=== PATIENT | female | born 1965 | race Caucasian/White ===

== ENCOUNTER 2022-06-06 02:09 | Inpatient (IN) | payer MEDICAID, OTHER ==
[2022-06-06] VITALS (19 sets, daily range): BP systolic 98–225; BP diastolic 71–126
[~2022-06-06] VITALS: Ht 157.5 cm; Wt 142.0 kg
[2022-06-06] MEDS ORDERED: ALBUTEROL FS 2.5 MG/3 ML VIAL.NEB NEB ONE (02:30)
[2022-06-06] MEDS ORDERED: IPRATROPIUM NEB FS 0.5 MG/2.5 ML AMPUL.NEB NEB ONE (02:30)
--- NOTE | 2022-06-06 02:37 | NUR ---
URINE COLLECTED AND SENT TO LAB.
--- NOTE | 2022-06-06 02:40 | NUR ---
GILLES COLLECTED AND SENT TO LAB.
--- NOTE | 2022-06-06 02:55 | NUR ---
18GA LEFT HAND, 20GA RAC STARTED. BLOOD CXs and BLOOD WORK COMPLETED AND SENT TO LAB.
[2022-06-06 03:04] LABS: BILIRUBIN,URINE 1+ (NEGATIVE); COLOR,URINE YELLOW (YELLOW); LEUKOCYTE ESTERASE ,URINE 1+ (NEGATIVE); NITRITE, URINE NEGATIVE (NEGATIVE); PROTEIN,URINE TRACE mg/dl (NEGATIVE); UGLUCOSE NEGATIVE (NEGATIVE); UROBILINOGEN,URINE 0.2 EU/dL (0.2)
--- NOTE | 2022-06-06 03:04 | NUR ---
RT AT BEDSIDE
[2022-06-06 03:05] LABS: BACTERIA,URINE Few /HPF (None Seen); CALCIUM OXALATE CRYSTALS,UR Rare /HPF (None Seen); SQUAMOUS EPITHELIAL CELL,UR Moderate /HPF (None Seen)
[2022-06-06] MEDS ORDERED: ALBUTEROL FS 2.5 MG/3 ML VIAL.NEB ONE (03:05)
[2022-06-06] MEDS ORDERED: IPRATROPIUM NEB FS 0.5 MG/2.5 ML AMPUL.NEB ONE (03:05)
--- NOTE | 2022-06-06 03:34 | NUR ---
PT WAS PLACED ON O2 AT 6 LPM VIA SYMPLE MASK. PT REMAINED ON CLOSE MONITORING
[2022-06-06 03:49] LABS: CALCIUM, SERUM 9.6 mg/dL (8.5-10.1); CARBON DIOXIDE 33 mmol/L (21-32); CHLORIDE 101 mmol/L (98-107); CREATININE 0.8 mg/dL (0.6-1.3); GLUCOSE 101 mg/dL (74-106); POTASSIUM 3.4 mmol/L (3.5-5.1); SODIUM SERUM 139 mmol/L (136-145); UREA NITROGEN, BLOOD 16 mg/dL (7-18)
[2022-06-06 04:01] LABS: ALANINE AMINOTRANSFERASE 34 U/L (12-78); ALBUMIN 3.2 g/dL (3.4-5.0); ALKALINE PHOSPHATASE 78 U/L (46-116); ASPARTATE AMINOTRANSFERASE 34 U/L (15-37); BASOPHILS # (AUTO) 0.1 K/uL (0.0-0.2); BASOPHILS % (AUTO) 0.6 % (0.0-2.0); BILIRUBIN,DIRECT 0.1 mg/dL (0.0-0.2); BILIRUBIN,TOTAL 0.4 mg/dL (0.2-1.0); EOSINOPHILS % (AUTO) 1.2 % (0.0-6.0); HEMATOCRIT 41 % (33-45); HEMOGLOBIN 13.3 g/dL (11.5-14.8); LYMPHOCYTES # (AUTO) 2.2 K/uL (0.8-4.8); MEAN CORPUSCULAR HGB CONC 32 g/dl (31.0-36.0); MEAN CORPUSCULAR VOLUME 88 fL (82-100); MONOCYTES # (AUTO) 1.5 K/uL (0.1-1.30); MONOCYTES % (AUTO) 9.9 % (2.0-12.0); NEUTROPHILS # (AUTO) 11.4 K/uL (1.8-8.9); NEUTROPHILS % (AUTO) 74.3 % (43.0-81.0); PLATELET COUNT (AUTO) 451 K/uL (150-450); RED BLOOD CELL COUNT(AUTO) 4.66 MIL/uL (4.0-5.2); TOTAL PROTEIN, SERUM 7.5 g/dL (6.4-8.2); WHITE BLOOD COUNT (AUTO) 15.4 K/uL (4.3-11.0)
[2022-06-06 04:06] LABS: D-DIMER 2.06 mg/L(FEU (0.17-0.50)
[2022-06-06] MEDS ORDERED: PIPERACILLIN /TAZOBACTAM 3.375 G VIAL IV ONE (04:27)
[2022-06-06] MEDS ORDERED: PIPERACILLIN /TAZOBACTAM 3.375 G in IV D5W 50 ML IV ONE (04:30)
[2022-06-06] MEDS ORDERED: VANCOMYCIN 1 GM in IV D5W 250 ML IV ONE (04:30)
[2022-06-06] MEDS ORDERED: IOHEXOL-350 100 ML VIAL IV ONE (05:30)
[2022-06-06] MEDS ORDERED: VANCOMYCIN 1 GM VIAL ONE (05:52)
--- NOTE | 2022-06-06 06:06 | NUR ---
PT TRANSPORTED TO CT ACCOMPANIED BY RN AND EMT. VSS REMAINED STABLE THROUGHOUT PROCEDURE. ABLE TO MAKE NEEDS KNOWN; COOPERATIVE.
[2022-06-06] MEDS ORDERED: DEXTROSE 50%-WATER 50 ML DISP.SYRIN IV PRN (06:30)
[2022-06-06] MEDS ORDERED: ZOLPIDEM TARTRATE 5 MG TABLET PO PRN (06:30)
[2022-06-06] MEDS ORDERED: ONDANSETRON HCL/PF 4 MG/2 ML VIAL IVP PRN (06:30)
[2022-06-06] MEDS ORDERED: MAGNESIUM HYDROXIDE 30 ML UDC PO PRN (06:30)
[2022-06-06] MEDS ORDERED: Z GUARD REMEDY 4 OZ OINT TP PRN (06:30)
[2022-06-06] MEDS ORDERED: MAG HYDROX/AL HYDROX/SIMETH 30 ML UDC PO PRN (06:30)
[2022-06-06] MEDS ORDERED: ENOXAPARIN SODIUM 40 MG/0.4 ML DISP.SYRIN SQ ONE (06:42)
[2022-06-06] MEDS: ENOXAPARIN SODIUM 40 MG/0.4 ML DISP.SYRIN SQ SCH (06:43)
[2022-06-06] MEDS ORDERED: PANTOPRAZOLE 40 MG VIAL IV SCH (09:00)
--- NOTE | 2022-06-06 10:11 | NUR ---
GOT BED 310 ADMITTING INFORMED.
--- NOTE | 2022-06-06 10:16 | NUR ---
report given to MARTINEZ Servin - continue plan of care.
[2022-06-06] MEDS ORDERED: ASPI-1169 GT (10:23)
[2022-06-06] MEDS ORDERED: ZINC50TA65 GT (10:23)
[2022-06-06] MEDS ORDERED: POLY17PO4 GT (10:23)
[2022-06-06] MEDS ORDERED: MULT-447 GT (10:23)
[2022-06-06] MEDS ORDERED: MAGN400O6 GT (10:23)
[2022-06-06] MEDS ORDERED: NALO0.4V2 IV (10:23)
[2022-06-06] MEDS ORDERED: ONDA4TAB5 GT (10:23)
[2022-06-06] MEDS ORDERED: IPRA0.2S9 IH ×2 (10:23→10:37)
[2022-06-06] MEDS ORDERED: CHLO473M5 MM (10:23)
[2022-06-06] MEDS ORDERED: ACET-868 GT (10:23)
[2022-06-06] MEDS ORDERED: CRAN425C6 GT (10:23)
[2022-06-06] MEDS ORDERED: VANC1.2526 IV (10:23)
[2022-06-06] MEDS ORDERED: SENN-18 GT (10:23)
[2022-06-06] MEDS ORDERED: INSU100V39 SQ (10:23)
[2022-06-06] MEDS ORDERED: CEFE2VIA3 IV (10:23)
[2022-06-06] MEDS ORDERED: ACID1TAB12 GT (10:23)
[2022-06-06] MEDS ORDERED: ACET-2605 GT (10:23)
[2022-06-06] MEDS ORDERED: MIDO10TA GT (10:23)
[2022-06-06] MEDS ORDERED: AMIN30LI2 GT (10:23)
[2022-06-06] MEDS ORDERED: NUT.237L30 GT (10:23)
[2022-06-06] MEDS ORDERED: CEFT2FRO2 IV (10:23)
[2022-06-06] MEDS ORDERED: ASCO-352 GT (10:23)
[2022-06-06] MEDS ORDERED: ALBU2.5V38 IH (10:23)
[2022-06-06] MEDS ORDERED: CRAN3875 GT (10:23)
[2022-06-06] MEDS ORDERED: DOCU50LI GT (10:23)
--- NOTE | 2022-06-06 10:36 | NUR ---
RN NOTES - PATIENT WAS ARRIVED IN MED SURG FROM ER BY 3 ER STAFF AT 1025, WAS SEEN BY MATI DEL TORO AND RECOMMENDED TO TRANSFER THE PATIENT TO ICU UNTIL STABLE. PATIENT WAS TRANSPORTED BACK USING ACLS PROTOCOL.
[2022-06-06] MEDS ORDERED: BISA10SU11 RC (10:37)
[2022-06-06] MEDS ORDERED: SENN-18 PO (10:37)
[2022-06-06] MEDS ORDERED: TEMA15CA PO (10:37)
[2022-06-06] MEDS ORDERED: DOCU-141 PO (10:37)
[2022-06-06] MEDS ORDERED: LORA-259 PO (10:37)
[2022-06-06] MEDS ORDERED: OXYC-133 PO (10:37)
[2022-06-06] MEDS ORDERED: NICO-676 TD (10:37)
[2022-06-06] MEDS ORDERED: HYDR-4303 PO (10:37)
[2022-06-06] MEDS ORDERED: GABA-532 PO (10:37)
[2022-06-06] MEDS ORDERED: METF-440 PO (10:37)
[2022-06-06] MEDS ORDERED: LIDO30AD10 TP (10:37)
[2022-06-06] MEDS ORDERED: PANT40TA2 PO (10:37)
[2022-06-06] MEDS ORDERED: DIPH25CA51 PO (10:37)
[2022-06-06] MEDS ORDERED: DOCU50LI PO (10:37)
[2022-06-06] MEDS ORDERED: ACET-868 PO (10:37)
[2022-06-06] MEDS ORDERED: ALBU18HF2 IH (10:37)
[2022-06-06] MEDS ORDERED: MAG30ORA PO (10:37)
[2022-06-06] MEDS ORDERED: CYCL5TAB PO ×2 (10:37)
[2022-06-06] MEDS ORDERED: DULO60CA45 PO (10:37)
[2022-06-06] MEDS ORDERED: FLUT16SP (10:37)
[2022-06-06] MEDS ORDERED: MINE107C TP (10:37)
[2022-06-06] MEDS ORDERED: TIOT18CA3 IH (10:37)
[2022-06-06] MEDS ORDERED: BUPR150T10 PO (10:37)
--- NOTE | 2022-06-06 10:40 | NUR ---
Note allysontopher in ED - 06/06/22 at 1049 by JOSE MANUEL Patient with no signs of distress, using cell phone to speak with family. Patient states he is feeling better. Made patient aware of call light. All safety precautions taken.
--- NOTE | 2022-06-06 11:03 | NUR ---
patient going to bed 254. report given to stanley for continuation of care
[2022-06-06] MEDS: IPRATROPIUM NEB FS 0.5 MG/2.5 ML AMPUL.NEB NEB SCH ×4 (11:30→23:12)
--- NOTE | 2022-06-06 11:30 | NUR ---
RN NOTE REPORT GIVEN BY HOLLIS HENRIQUEZ. PT ON 10L SIMPLE MASK W/SOB. WOUNDS NOTED AND WOUND CONSULT REQUESTED. WILL ORDER BARIATRIC BED FOR PT ALSO. PT HAS TWO PERIPHERAL IV SITES; BOTH PATENT AND INTACT AT THIS TIME. PT CAME W/ELIZABETH CATH; PER HOLLIS PT CAME IN WITH ELIZABETH CATH. PT CAME FROM [facility] PER [facility]. PT ADMITTED FOR ACUTE RESP FAILURE W/HYPOXIA, SEPSIS, AND PULMONARY EDEMA. PT SITUATED IN BED, CHANGED TO HOSPITAL GOWN.
--- NOTE | 2022-06-06 11:56 | NUR ---
RT NOTE: PER PATIENT PLACED ON BIPAP BUT PATIENT BECAME COMBATIVE AND RIPPED OFF THE MASK. PATIENT WAS PLACED ON 4LPM NASAL CANNULA AND BIPAP IS STANDBY. NOTIFIED AND CHARGE NURSE(SCOTTIE).
[2022-06-06] MEDS: BLOOD SUGAR DIAGNOSTIC 1 EACH STRIP IN SCH ×3 (12:41→21:27)
[2022-06-06] MEDS: LEVOFLOXACIN 750 MG /D5W 150ML 150 ML IV SCH (12:45)
[2022-06-06 12:51] LABS: ABG BASE EXCESS 1.1 mmol/L; ABG PH 7.301 (7.350-7.450); ABG PO2 191.8 mmHg (75.0-100.0); COHb 0.3 % (0.5-1.5); MetHb 0.5 % (0.0-1.5); O2Hb 98.2 % (94.0-97.0); SITE, ABG Left Radial
[2022-06-06 12:52] LABS: ABG OXYGEN SATURATION 96.8 % (92.0-98.5); ABG PCO2 59.4 mmHg (35.0-45.0); ABG PH 7.329 (7.350-7.450); ABG PO2 96.8 mmHg (75.0-100.0); AaDO2 265.7 mmHg; COHb 0.3 % (0.5-1.5); MetHb 0.3 % (0.0-1.5); O2Hb 96.2 % (94.0-97.0); SITE, ABG Left Radial; VENT MODE, BG SIMPLE MASK
[2022-06-06] MEDS ORDERED: IV NS 0.9% 250 ML IV PRN (13:00)
[2022-06-06] MEDS: methylPREDNISolone SOD SUCC 125 MG/2ML VIAL IV SCH ×2 (13:27→21:05)
[2022-06-06] MEDS: hydrALAZINE HCL IV 20 MG VIAL IV PRN ×2 (15:11→21:05)
[2022-06-06] MEDS: ALBUTEROL HALF STRENGTH 1.25 MG/3 ML VIAL.NEB NEB SCH ×3 (15:30→23:12)
[2022-06-06] MEDS ORDERED: ACETAMINOPHEN 325 MG TABLET PO PRN (15:30)
--- NOTE | 2022-06-06 16:20 | NUR ---
pt refuses hhn zero distress noted. easily aroused. nurse aware.
[2022-06-06] MEDS: buPROPion SR 150 MG TABLET.ER PO SCH (16:40)
[2022-06-06] MEDS: GABAPENTIN 300 MG CAPSULE PO SCH (16:40)
[2022-06-06] MEDS: CYCLOBENZAPRINE 10 MG TABLET PO SCH (16:40)
[2022-06-06] MEDS: DOCUSATE SODIUM 100 MG CAPSULE PO SCH (16:41)
[2022-06-06] MEDS: ZOSYN IVPB 3.375 G in IV D5W 50ml IV SCH ×2 (17:03→23:47)
[2022-06-06] MEDS: VANCOMYCIN HCL 0.75 GM in IV D5W 250 ML IV SCH (18:35)
--- NOTE | 2022-06-06 19:20 | NUR ---
Pt is noted in bed alert, responsive with call light in reach and fall precaution sin place as report is received from the off going nurse that is a new admit during the day shift as she came from SNF due to Hypoxia, Sepsis and Pulmonary edema. Sinus Rhythm on the Tele monitor, 02 4liters Nasal Cannula, Skin dry, warm but skin areas noted, please see skin assessment sheet in chart. Pt care continue as she is been monitor closely and noted refusing breathing treatment and BiPAP therapy from the RT at these hour.
--- NOTE | 2022-06-06 20:05 | NUR ---
refused breathing tx.
[2022-06-06] MEDS: INSULIN REGULAR, HUMAN 100 UNIT/ML 3 ML VIAL SQ PRN (21:29)
[2022-06-06] MEDS: SENNOSIDES 8.6 MG TABLET PO SCH (21:29)
--- NOTE | 2022-06-06 23:12 | NUR ---
Patient refused BiPAP. Will continue to monitor.
[2022-06-07] VITALS (24 sets, daily range): BP systolic 102–240; BP diastolic 43–136
--- NOTE | 2022-06-07 00:30 | NUR ---
Pt remain full code with 4Liters Nasal Cannula and Hydrazine 10ng IVP therapy in progress as Blood pressures is been monitor closely. Pt care continue as she is been monitor closely and assist as needed.
[2022-06-07] MEDS: IPRATROPIUM NEB FS 0.5 MG/2.5 ML AMPUL.NEB NEB SCH ×6 (03:29→23:30)
[2022-06-07] MEDS: ALBUTEROL HALF STRENGTH 1.25 MG/3 ML VIAL.NEB NEB SCH ×6 (03:29→23:30)
[2022-06-07 05:19] LABS: BASOPHILS % (AUTO) 0.3 % (0.0-2.0); HEMATOCRIT 42 % (33-45); HEMOGLOBIN 13.7 g/dL (11.5-14.8); LYMPHOCYTES # (AUTO) 0.9 K/uL (0.8-4.8); LYMPHOCYTES % (AUTO) 7.3 % (20.0-44.0); MEAN CORPUSCULAR HGB CONC 33 g/dl (31.0-36.0); MEAN CORPUSCULAR VOLUME 88 fL (82-100); MONOCYTES # (AUTO) 0.2 K/uL (0.1-1.30); MONOCYTES % (AUTO) 1.4 % (2.0-12.0); NEUTROPHILS # (AUTO) 10.6 K/uL (1.8-8.9); PLATELET COUNT (AUTO) 479 K/uL (150-450); RED BLOOD CELL COUNT(AUTO) 4.79 MIL/uL (4.0-5.2); WHITE BLOOD COUNT (AUTO) 11.7 K/uL (4.3-11.0)
--- NOTE | 2022-06-07 05:27 | NUR ---
Pt is sleeping with AM and wound care done , call light in reach and fall precaution sin place as she is been monitor closely.Pt care continue with New Osorio April and Right upper Arm Midline #18g remain in place .
[2022-06-07 05:29] LABS: ALBUMIN 3.1 g/dL (3.4-5.0); BILIRUBIN,DIRECT 0.1 mg/dL (0.0-0.2); BILIRUBIN,TOTAL 0.4 mg/dL (0.2-1.0); CALCIUM, SERUM 9.8 mg/dL (8.5-10.1); CREATININE 0.7 mg/dL (0.6-1.3); MAGNESIUM 2.1 mg/dL (1.8-2.4); PHOSPHORUS 3.9 mg/dL (2.5-4.9); POTASSIUM 3.7 mmol/L (3.5-5.1); TOTAL PROTEIN, SERUM 7.7 g/dL (6.4-8.2)
[2022-06-07 05:33] LABS: ABG BASE EXCESS 3.2 mmol/L; ABG OXYGEN SATURATION 91.6 % (92.0-98.5); ABG PCO2 49.2 mmHg (35.0-45.0); ABG PH 7.391 (7.350-7.450); ABG PO2 61.7 mmHg (75.0-100.0); AaDO2 137.9 mmHg; COHb 1.1 % (0.5-1.5); MetHb 0.3 % (0.0-1.5); O2Hb 90.3 % (94.0-97.0); SITE, ABG Left Radial; VENT MODE, BG Nasal Cannula
[2022-06-07 05:41] LABS: THYROID STIMULATING HORMONE 1.209 uIU/mL (0.358-3.74)
[2022-06-07] MEDS: ZOSYN IVPB 3.375 G in IV D5W 50ml IV SCH ×3 (05:44→17:01)
[2022-06-07] MEDS: methylPREDNISolone SOD SUCC 125 MG/2ML VIAL IV SCH ×3 (05:44→21:23)
[2022-06-07] MEDS: VANCOMYCIN HCL 0.75 GM in IV D5W 250 ML IV SCH ×3 (05:45→17:47)
[2022-06-07] MEDS: ENOXAPARIN SODIUM 40 MG/0.4 ML DISP.SYRIN SQ SCH (05:46)
[2022-06-07] MEDS: BLOOD SUGAR DIAGNOSTIC 1 EACH STRIP IN SCH ×4 (06:11→22:00)
[2022-06-07] MEDS: INSULIN REGULAR, HUMAN 100 UNIT/ML 3 ML VIAL SQ PRN ×4 (06:15→23:17)
--- NOTE | 2022-06-07 07:35 | NUR ---
Pt care continue as report is given to the AM receiving nurse.
--- NOTE | 2022-06-07 07:39 | NUR ---
WOUND CARE CONSULT: PT PRESENTS WITH AREAS OF PEELING RASH TO SKIN FOLDS, LEFT THIGH AND LEFT POSTERIOR KNEE, PRESENT ON ADMISSION. PT DEMONSTRATES ABILITY TO ASSIST WITH TURNING AND REPOSITIONING IN BED. DISCUSSED SKIN PROTECTION WITH NURSING STAFF. IN AGREEMENT WITH PLAN OF CARE. GLENN BROOKE NOTED. Addendum: 06/07/22 at 0814 by DERIC REESE WNDNU FIRST STEP LOW AIRLOSS MATTRESS IS ON ORDER.
[2022-06-07] MEDS: LIDOCAINE 5% (PATCH) 1 EA PATCH TP SCH ×2 (08:34→08:54)
[2022-06-07] MEDS: GABAPENTIN 300 MG CAPSULE PO SCH ×3 (08:35→16:57)
[2022-06-07] MEDS: PANTOPRAZOLE 40 MG TABLET.DR PO SCH (08:35)
[2022-06-07] MEDS: buPROPion SR 150 MG TABLET.ER PO SCH ×2 (08:35→16:57)
[2022-06-07] MEDS: DOCUSATE SODIUM 100 MG CAPSULE PO SCH ×2 (08:35→16:57)
[2022-06-07] MEDS: CYCLOBENZAPRINE 10 MG TABLET PO SCH ×3 (08:35→16:57)
[2022-06-07] MEDS: DULOXETINE HCL 30 MG CAPSULE.DR PO SCH (08:35)
[2022-06-07] MEDS: FLUTICASONE PROPIONATE 16 GM BOTTLE NS SCH (08:37)
[2022-06-07] MEDS ORDERED: NICOTINE PATCH (14MG) 14 MG PATCH.TD24 TD SCH (09:00)
[2022-06-07] MEDS: CLOTRIMAZOLE 1% 15 GM TUBE TP SCH ×2 (09:08→16:44)
[2022-06-07] MEDS: hydrALAZINE HCL IV 20 MG VIAL IV PRN (09:18)
--- NOTE | 2022-06-07 10:31 | NUR ---
RN NOTES PT BEING DOWNGRADED TO TELEMETRY STATUS PER PHYSICIAN'S ORDER. REPORT GIVEN TO JAXSON HENRIQUEZ FOR CONTINUATION OF CARE. PT IS COMFORTABLE, ALL DUE MEDICATIONS GIVEN AT THIS TIME.
--- NOTE | 2022-06-07 11:15 | NUR ---
RECEIVED PATIENT FROM ICU, DOWNGRADED TO TELEMETRY. A/O X3-4, ELIZABETH CATH IN PLACE, IV ACCESS RIGHT UPPER ARM MIDLINE. SAFETY ,MEASURES IMPLEMENTED, BED LOCKED AND IN LOWEST POSITION, WILL CONTINUE TO MONITOR.
[2022-06-07] MEDS: LEVOFLOXACIN 750 MG /D5W 150ML 150 ML IV SCH (11:39)
--- NOTE | 2022-06-07 17:35 | NUR ---
VANCOMICIN NOT ADMINISTERED, PHARMACY CALLED, TO HOLD PER LEVEL ORDERED
[2022-06-07] MEDS: VANCOMYCIN 1 GM in IV D5W 250ml IV SCH (18:11)
--- NOTE | 2022-06-07 18:44 | NUR ---
RN CLOSING NOTE. PATIENT IN BED, ASLEEP, O2 VIA NC AT 3L, NO SOB, ELIZABETH CATH IN PLACE DRAINING WELL, RIGHT UPPER ARM MIDLINE CLEAN AND PATENT. SAFETY MEASURES IMPLEMENTED WILL ENDORSE TO THE NEXT SHIFT FOR DOROTHY.
--- NOTE | 2022-06-07 19:30 | NUR ---
WEBMASTER OPENING NOTES Received patient in uche sleeping. Easily be awaken by calling name. A/O x 3. No s/s of pain noted at this time. On 3L oxygen via NC, breathing even and unlabored, no distress or sob noted at this time. Patient has midline SEBASTIÁN #22G, intact, patent and flushing well. Patient on cardiac sonographer of SR, no cardiac distress noted. Patient have cash catheter in place draining yellow cloudy urine. Safety measures in place with bed on lowest and locked position. Side rails up x 3. Call light and tray within easy reach. Will continue with the plan of care and will carry out active MD orders.
[2022-06-07] MEDS: SENNOSIDES 8.6 MG TABLET PO SCH (21:23)
--- NOTE | 2022-06-07 21:30 | NUR ---
RN NOTES REPOSITIONED THE PATIENT ON HER LEFT SIDE. PATIENT IS IN PAIN WHILE MOVING BUT SHE'S ABLE TO TOLERATE IT. WILL REPOSTION THE PATIENT AFTER 2 HRS.
[2022-06-08] VITALS: BP 141/81
--- NOTE | 2022-06-08 00:03 | NUR ---
RT pt refused bipap. no sob, no resp distress. notified MARTINEZ bates
[2022-06-08] MEDS: ZOSYN IVPB 3.375 G in IV D5W 50ml IV SCH ×3 (00:55→11:28)
[2022-06-08] MEDS: IPRATROPIUM NEB FS 0.5 MG/2.5 ML AMPUL.NEB NEB SCH ×6 (03:30→23:30)
[2022-06-08] MEDS: ALBUTEROL HALF STRENGTH 1.25 MG/3 ML VIAL.NEB NEB SCH ×6 (03:30→23:30)
[2022-06-08 04:00] VITALS: BP 145/88
[2022-06-08] MEDS: methylPREDNISolone SOD SUCC 125 MG/2ML VIAL IV SCH ×3 (04:17→20:45)
[2022-06-08] MEDS: VANCOMYCIN 1 GM in IV D5W 250ml IV SCH (05:15)
[2022-06-08] MEDS: VANCOMYCIN HCL 0.75 GM in IV D5W 250 ML IV SCH (05:21)
[2022-06-08] MEDS: ENOXAPARIN SODIUM 40 MG/0.4 ML DISP.SYRIN SQ SCH (06:09)
[2022-06-08] MEDS: BLOOD SUGAR DIAGNOSTIC 1 EACH STRIP IN SCH ×5 (06:47→21:13)
--- NOTE | 2022-06-08 07:00 | NUR ---
GAS PUMPING STATION OPERATOR CLOSING NOTES Patient in bed sleeping. Easily be awaken by calling name. A/O x 3. No s/s of pain noted at this time. On 3L oxygen via NC, breathing even and unlabored, no distress or sob noted at this time. Patient has midline SEBASTIÁN #22G currently running Vanco @ 250ml/hr. Patient on youth nutritional monitor of SR @ 90, no cardiac distress noted. Patient have cash catheter in place drained 1900cc of yellow colored urine. Safety measures maintained with bed on lowest and locked position. Side rails up x 3. Call light and tray within easy reach. Will endorse to the next shift for continuity of care.
--- NOTE | 2022-06-08 07:30 | NUR ---
DATABASE ADMINISTRATION MANAGER OPENING NOTES pt on bed. awake and verbally responsive, A/O x 3. No s/s of pain noted at this time. On 3L oxygen via NC, breathing even and unlabored, no distress or sob noted at this time. Patient has midline SEBASTIÁN #22G, intact, patent and flushing well. Patient on bus monitor of SR, no cardiac distress noted. Patient have cash catheter in place draining yellow cloudy urine. Safety measures in place with bed on lowest and locked position. Side rails up x 3. Call light and tray within easy reach. Will continue with the plan of care and will carry out active MD orders.
[2022-06-08 07:38] LABS: BASOPHILS # (AUTO) 0.1 K/uL (0.0-0.2); BASOPHILS % (AUTO) 0.4 % (0.0-2.0); EOSINOPHILS % (AUTO) 0.1 % (0.0-6.0); HEMATOCRIT 43 % (33-45); LYMPHOCYTES # (AUTO) 0.8 K/uL (0.8-4.8); MEAN CORPUSCULAR HGB CONC 32 g/dl (31.0-36.0); MEAN CORPUSCULAR VOLUME 88 fL (82-100); MONOCYTES # (AUTO) 0.4 K/uL (0.1-1.30); MONOCYTES % (AUTO) 3.4 % (2.0-12.0); NEUTROPHILS # (AUTO) 11.7 K/uL (1.8-8.9); NEUTROPHILS % (AUTO) 90.1 % (43.0-81.0); PLATELET COUNT (AUTO) 466 K/uL (150-450)
[2022-06-08] MEDS: PANTOPRAZOLE 40 MG TABLET.DR PO SCH (07:55)
[2022-06-08 08:00] VITALS: BP 158/87
[2022-06-08] MEDS: FLUTICASONE PROPIONATE 16 GM BOTTLE NS SCH (08:13)
[2022-06-08] MEDS: INSULIN REGULAR, HUMAN 100 UNIT/ML 3 ML VIAL SQ PRN ×3 (08:17→21:14)
[2022-06-08] MEDS: NICOTINE PATCH (14MG) 14 MG PATCH.TD24 TD SCH ×2 (08:26→09:03)
[2022-06-08] MEDS: CYCLOBENZAPRINE 10 MG TABLET PO SCH ×3 (08:27→17:02)
[2022-06-08] MEDS: DULOXETINE HCL 30 MG CAPSULE.DR PO SCH (08:27)
[2022-06-08] MEDS: GABAPENTIN 300 MG CAPSULE PO SCH ×3 (08:27→17:02)
[2022-06-08] MEDS: buPROPion SR 150 MG TABLET.ER PO SCH ×2 (08:27→17:02)
[2022-06-08] MEDS: DOCUSATE SODIUM 100 MG CAPSULE PO SCH ×2 (08:27→17:01)
[2022-06-08] MEDS: LIDOCAINE 5% (PATCH) 1 EA PATCH TP SCH (09:00)
[2022-06-08 09:01] LABS: BILIRUBIN,TOTAL 0.4 mg/dL (0.2-1.0); CALCIUM, SERUM 10.3 mg/dL (8.5-10.1); CREATININE 0.8 mg/dL (0.6-1.3); PHOSPHORUS 3.2 mg/dL (2.5-4.9); POTASSIUM 3.5 mmol/L (3.5-5.1); TOTAL PROTEIN, SERUM 7.4 g/dL (6.4-8.2)
[2022-06-08] MEDS: CLOTRIMAZOLE 1% 15 GM TUBE TP SCH ×2 (09:02→17:38)
--- NOTE | 2022-06-08 09:30 | NUR ---
RN NOTES DUE MEDS GIVEN
[2022-06-08] MEDS: LEVOFLOXACIN 750 MG /D5W 150ML 150 ML IV SCH (11:03)
[2022-06-08 12:00] VITALS: BP 137/88
[2022-06-08 16:00] VITALS: BP 144/80
[2022-06-08] MEDS ORDERED: CEFEPIME 1 GM in IV D5W 50 ML IV SCH (16:30)
[2022-06-08] MEDS: METFORMIN 500 MG TABLET PO SCH (17:01)
[2022-06-08] MEDS: CEFEPIME 2 GM in IV D5W 100 ML IV SCH (17:19)
--- NOTE | 2022-06-08 18:53 | NUR ---
CONNECTION WORKER CLOSING NOTES Patient ON bed awake. verbally responsive. A/O x 3. No s/s of pain noted at this time. On 3L oxygen via NC, breathing even and unlabored, no distress or sob noted at this time. Patient has midline SEBASTIÁN #22G SL. Patient on it security analyst of SR @ 101, no cardiac distress noted. Patient have cash catheter in place drained 1000cc of yellow colored urine. Safety measures maintained with bed on lowest and locked position. Side rails up x 3. Call light and tray within easy reach. Will endorse to the next shift for continuity of care.
--- NOTE | 2022-06-08 19:29 | NUR ---
PIZZA BAKER OPENING NOTE RECEIVED PATIENT IN BED, AWAKE, ALERT AND ORIENTED X 3-4. ABLE TO COMMUNICATE NEEDS WITH THE STAFFS. AFEBRILE AND NOT IN ANY FORM OF ACUTE DISTRESS. ON O2 INHALATION VIA NASAL CANNULA AT 3LPM. ON TELE MONITORING WITH CURRENT READING OF ST 101. WITH IV ACCESS ON SEBASTIÁN MIDLINE-SL. SAFETY MEASURES IN PLACE. KEPT BED IN LOCKED AND IN LOW POSITION. SIDE RAILS UP X2. ADVISED TO USE THE CALL LIGHT WHEN IN NEED OF ASSISTANCE.
[2022-06-08 20:00] VITALS: BP 134/77
[2022-06-08] MEDS: DOXYCYCLINE HYCLATE (100 MG) 100 MG TABLET PO SCH (20:45)
[2022-06-08] MEDS: SENNOSIDES 8.6 MG TABLET PO SCH (21:13)
--- NOTE | 2022-06-08 21:50 | NUR ---
DOCUMENT CONTROL ASSOCIATE NOTE TRIED TO OFFER BIPAP BUT PATIENT REFUSED TO HAVE IT AND SAID THAT SHE IS OKAY WITHOUT IT. SHE IS CURRENTLY ON BREATHING TX AND ON STEROIDS.
[2022-06-09] VITALS (7 sets, daily range): BP systolic 127–150; BP diastolic 70–91
[2022-06-09] MEDS: ACETAMINOPHEN 325 MG TABLET PO PRN ×2 (00:25→21:13)
[2022-06-09] MEDS: IPRATROPIUM NEB FS 0.5 MG/2.5 ML AMPUL.NEB NEB SCH ×7 (00:40→20:36)
[2022-06-09] MEDS: ALBUTEROL HALF STRENGTH 1.25 MG/3 ML VIAL.NEB NEB SCH ×7 (00:40→20:36)
[2022-06-09] MEDS: CEFEPIME 2 GM in IV D5W 100 ML IV SCH ×3 (01:00→17:07)
[2022-06-09] MEDS: methylPREDNISolone SOD SUCC 125 MG/2ML VIAL IV SCH (04:05)
[2022-06-09] MEDS: ENOXAPARIN SODIUM 40 MG/0.4 ML DISP.SYRIN SQ SCH (05:35)
--- NOTE | 2022-06-09 06:30 | NUR ---
DONOR SUPPORT TECHNICIAN CLOSING NOTE PATIENT IN BED, ASLEEP BUT EASY TO AROUSE AND RESPONSIVE. ALERT AND ORIENTED X 3-4. ABLE TO MAKE NEEDS KNOWN. AFEBRILE AND NOT IN ANY FORM OF ACUTE DISTRESS. ON O2 INHALATION VIA NASAL CANNULA AT 3LPM. ON TELE MONITORING WITH CURRENT READING OF SR 95. WITH IV ACCESS ON SEBASTIÁN MIDLINE-SL. WITH INTACT ELIZABETH CATHETER, DRAINING WELL WITH YELLOW URINE OUTPUT, NO HEMATURIA OR SEDIMENTS NOTED, WITH APPROX. 1200ML OUTPUT DURING THE SHIFT. MONITORED FOR ANY S/SX. OF HYPO/HYPERGLYCEMIA. MEDICATED ORDERED. SAFETY MEASURES IN PLACE. KEPT BED IN LOCKED AND IN LOW POSITION. SIDE RAILS UP X2. ADVISED TO USE THE CALL LIGHT WHEN IN NEED OF ASSISTANCE. ALL NURSING NEEDS ATTENDED. ENDORSED TO INCOMING SHIFT FOR CONTINUITY OF CARE.
[2022-06-09] MEDS: BLOOD SUGAR DIAGNOSTIC 1 EACH STRIP IN SCH ×4 (06:52→22:19)
[2022-06-09] MEDS: INSULIN REGULAR, HUMAN 100 UNIT/ML 3 ML VIAL SQ PRN ×4 (06:53→22:21)
--- NOTE | 2022-06-09 07:18 | NUR ---
NURSING HOME PHYSICIAN OPENING NOTE RECEIVED PATIENT IN BED WITH HOB ELEVATED, PT IS AWAKE, ALERT AND ORIENTED X 4, FOLLOWS COMMANDS AND ABLE TO MAKE NEEDS FULLY KNOWN. ORIENTED TO ROOM AND STAFF. AFEBRILE, NO NOTED DISTRESS OF ANY FORM. ON O2 INHALATION VIA NASAL CANNULA AT 3LPM, SATURATING AT 100% WITHOUT DIFFICULTY. ON TELE MONITORING WITH CURRENT READING OF SE WITH 95 HR. IV ACCESS ON SEBASTIÁN MIDLINE, SALINE LOCKED, PATENT AND FLUSHING WELL. ON ELIZABETH CATHETER DRAINING CLEAR YELLOW URINE FREE FROM HEMATURIA, NO SEDIMENTS NOTED WELL. SAFETY MEASURES IN PLACE: BED IN LOCKED AND IN LOWEST POSITION. SIDE RAILS UP X2. CALL LIGHT AND TRAY TABLE WITHIN EASY REACH. WILL CONTINUE TO MONITOR.
[2022-06-09] MEDS: PANTOPRAZOLE 40 MG TABLET.DR PO SCH (07:38)
[2022-06-09] MEDS: NICOTINE PATCH (14MG) 14 MG PATCH.TD24 TD SCH (08:55)
[2022-06-09] MEDS: LIDOCAINE 5% (PATCH) 1 EA PATCH TP SCH ×2 (08:55→09:00)
[2022-06-09] MEDS: DULOXETINE HCL 30 MG CAPSULE.DR PO SCH (08:55)
[2022-06-09] MEDS: buPROPion SR 150 MG TABLET.ER PO SCH ×2 (08:56→16:05)
[2022-06-09] MEDS: DOCUSATE SODIUM 100 MG CAPSULE PO SCH ×2 (08:56→16:04)
[2022-06-09] MEDS: CYCLOBENZAPRINE 10 MG TABLET PO SCH ×3 (08:56→16:05)
[2022-06-09] MEDS: GABAPENTIN 300 MG CAPSULE PO SCH ×3 (08:57→16:05)
[2022-06-09] MEDS: METFORMIN 500 MG TABLET PO SCH ×3 (08:57→16:05)
[2022-06-09] MEDS: DOXYCYCLINE HYCLATE (100 MG) 100 MG TABLET PO SCH ×2 (08:57→21:13)
[2022-06-09] MEDS: CLOTRIMAZOLE 1% 15 GM TUBE TP SCH ×2 (09:06→16:05)
[2022-06-09] MEDS: FLUTICASONE PROPIONATE 16 GM BOTTLE NS SCH (09:06)
--- NOTE | 2022-06-09 09:14 | NUR ---
RN NOTES - PT REFUSED LIDOCAINE PATCH SAYING SHE DOESNT HAVE PAIN, PT REFUSED METFORMIN SHE IS GETTING DIARRHEA REACTION FROM IT. RETURNED MEDICATIONS
[2022-06-09 09:54] LABS: BASOPHILS % (AUTO) 0.2 % (0.0-2.0); HEMATOCRIT 44 % (33-45); HEMOGLOBIN 14.3 g/dL (11.5-14.8); LYMPHOCYTES % (AUTO) 7.6 % (20.0-44.0); MEAN CORPUSCULAR HGB CONC 33 g/dl (31.0-36.0); MEAN CORPUSCULAR VOLUME 88 fL (82-100); MONOCYTES # (AUTO) 0.6 K/uL (0.1-1.30); MONOCYTES % (AUTO) 4.3 % (2.0-12.0); NEUTROPHILS # (AUTO) 11.4 K/uL (1.8-8.9); NEUTROPHILS % (AUTO) 87.9 % (43.0-81.0); PLATELET COUNT (AUTO) 469 K/uL (150-450); RED BLOOD CELL COUNT(AUTO) 4.98 MIL/uL (4.0-5.2); WHITE BLOOD COUNT (AUTO) 12.9 K/uL (4.3-11.0)
[2022-06-09 10:12] LABS: CALCIUM, SERUM 10.1 mg/dL (8.5-10.1); MAGNESIUM 2.1 mg/dL (1.8-2.4); PHOSPHORUS 2.8 mg/dL (2.5-4.9); POTASSIUM 3.8 mmol/L (3.5-5.1)
--- NOTE | 2022-06-09 18:48 | NUR ---
PROJECT MANAGEMENT CLOSING NOTE PATIENT IN BED WITH HOB ELEVATED, PT IS AWAKE, ALERT AND ORIENTED X 4, ABLE TO MAKE NEEDS FULLY KNOWN. AFEBRILE, NO NOTED DISTRESS OF ANY FORM. STILL WITH O2 INHALATION VIA NASAL CANNULA AT 3LPM, SATURATING AT 100%. TELE MONITORING WITH CURRENT READING OF SR WITH 98 HR. IV ACCESS ON SEBASTIÁN MIDLINE, SALINE LOCKED, PATENT AND FLUSHING WELL. ELIZABETH CATHETER DRAINING CLEAR YELLOW URINE OF ABOUT 1300 ML. ALL DUE MEDS GIVEN, ALL NEEDS MET. PT DENIED PAIN AT THIS MOMENT. SAFETY MEASURES MAINTAINED: BED IN LOCKED AND IN LOWEST POSITION. SIDE RAILS UP X2. CALL LIGHT AND TRAY TABLE WITHIN EASY REACH. WILL ENDORSE TO PEDIATRICIAN NURSE.
--- NOTE | 2022-06-09 19:20 | NUR ---
RN OPENING NOTE RECEIVED PATIENT IN BED, AWAKE, AAO X4, ABLE TO MAKE NEEDS KNOWN, NO SOB/DISTRESS NOTED. O2 VIA NC AT 3L, O2 SAT AT 100%. ON TELE MONITORING WITH CURRENT READING OF SR WITH 98 HR. IV ACCESS ON SEBASTIÁN MIDLINE SALINE LOCK, INTACT AND FLUSHING WELL. ELIZABETH CATHETER INTACT AND DRAINING CLEAR YELLOW URINE. SAFETY MEASURES IN PLACE: BED LOCKED AND IN LOWEST POSITION, CALL LIGHT WITHIN REACH, SIDE RAILS UP X3.
--- NOTE | 2022-06-09 20:45 | NUR ---
RT NOTE PT REFUSING HHN TX AND NOC BIPAP. ENCOURAGED PT ON BENEFITS AND RISKS OF BIPAP. PT STILL REFUSED. RN AWARE.
--- NOTE | 2022-06-09 21:02 | NUR ---
RN NOTE PER RT, PATIENT REFUSED BIPAP. NO SOB NOTED.
[2022-06-09] MEDS: SENNOSIDES 8.6 MG TABLET PO SCH (21:13)
--- NOTE | 2022-06-09 21:16 | NUR ---
RN NOTE PATIENT COMPLAINED OF GENERALIZED PAIN 3/10, TYLENOL 650 MG ADMINISTERED.
[2022-06-10] VITALS (7 sets, daily range): BP systolic 131–143; BP diastolic 73–88
[2022-06-10] MEDS: CEFEPIME 2 GM in IV D5W 100 ML IV SCH ×2 (02:02→09:15)
[2022-06-10] MEDS: ALBUTEROL HALF STRENGTH 1.25 MG/3 ML VIAL.NEB NEB SCH ×6 (03:30→23:55)
[2022-06-10] MEDS: IPRATROPIUM NEB FS 0.5 MG/2.5 ML AMPUL.NEB NEB SCH ×6 (03:30→23:55)
[2022-06-10 06:52] LABS: BASOPHILS % (AUTO) 0.2 % (0.0-2.0); EOSINOPHILS % (AUTO) 0.5 % (0.0-6.0); HEMATOCRIT 44 % (33-45); HEMOGLOBIN 14.1 g/dL (11.5-14.8); LYMPHOCYTES # (AUTO) 2.5 K/uL (0.8-4.8); LYMPHOCYTES % (AUTO) 20.6 % (20.0-44.0); MEAN CORPUSCULAR HGB CONC 32 g/dl (31.0-36.0); MEAN CORPUSCULAR VOLUME 88 fL (82-100); MONOCYTES # (AUTO) 1.4 K/uL (0.1-1.30); MONOCYTES % (AUTO) 11.8 % (2.0-12.0); NEUTROPHILS % (AUTO) 66.9 % (43.0-81.0); PLATELET COUNT (AUTO) 428 K/uL (150-450); RED BLOOD CELL COUNT(AUTO) 4.95 MIL/uL (4.0-5.2)
[2022-06-10 07:13] LABS: CALCIUM, SERUM 9.8 mg/dL (8.5-10.1); CREATININE 0.8 mg/dL (0.6-1.3); MAGNESIUM 2.1 mg/dL (1.8-2.4); PHOSPHORUS 2.7 mg/dL (2.5-4.9); POTASSIUM 3.6 mmol/L (3.5-5.1)
[2022-06-10] MEDS: ENOXAPARIN SODIUM 40 MG/0.4 ML DISP.SYRIN SQ SCH (07:13)
--- NOTE | 2022-06-10 07:24 | NUR ---
RN CLOSING NOTE PATIENT IN BED, ASLEEP BUT AROUSABLE, AAO X4, ABLE TO MAKE NEEDS KNOWN, NO SOB/DISTRESS NOTED. O2 VIA NC AT 3L, O2 SAT AT 96%. ON TELE MONITORING WITH CURRENT READING OF SR WITH 86 HR. IV ACCESS ON SEBASTIÁN MIDLINE SALINE LOCK, INTACT AND FLUSHING WELL. ELIZABETH CATHETER INTACT AND DRAINING CLEAR YELLOW URINE. ALL DUE MEDS WERE GIVEN AND NEEDS ATTENDED. SAFETY MEASURES IN PLACE: BED LOCKED AND IN LOWEST POSITION, CALL LIGHT WITHIN REACH, SIDE RAILS UP X3. ENDORSED TO AM NURSE FOR DOROTHY
[2022-06-10] MEDS: BLOOD SUGAR DIAGNOSTIC 1 EACH STRIP IN SCH ×4 (07:30→21:26)
--- NOTE | 2022-06-10 07:30 | NUR ---
OPENING NOTE RECEIVED PATIENT ASLEEP BUT AROUSABLE, ORIENTEDX3, NO SIGNS OF IN DISTRESS, COMPLAINT OF PAIN ON RIGHT HIP, UNLABORED BREATHING ON ROOM AIR, SAFETY MEASURES APPLIED, BED IN LOW POSITION LOCKED, SIDE RAILS UPX3, CALL LIGHT WITHIN REACH.
[2022-06-10] MEDS: INSULIN REGULAR, HUMAN 100 UNIT/ML 3 ML VIAL SQ PRN ×4 (07:33→21:44)
[2022-06-10] MEDS: PANTOPRAZOLE 40 MG TABLET.DR PO SCH (07:51)
[2022-06-10] MEDS: FLUTICASONE PROPIONATE 16 GM BOTTLE NS SCH (08:08)
[2022-06-10] MEDS: DOXYCYCLINE HYCLATE (100 MG) 100 MG TABLET PO SCH ×2 (08:09→21:26)
[2022-06-10] MEDS: CYCLOBENZAPRINE 10 MG TABLET PO SCH ×3 (08:09→16:12)
[2022-06-10] MEDS: buPROPion SR 150 MG TABLET.ER PO SCH ×2 (08:09→16:13)
[2022-06-10] MEDS: DULOXETINE HCL 30 MG CAPSULE.DR PO SCH (08:09)
[2022-06-10] MEDS: GABAPENTIN 300 MG CAPSULE PO SCH ×3 (08:10→16:12)
[2022-06-10] MEDS: METFORMIN 500 MG TABLET PO SCH ×2 (08:10→16:13)
[2022-06-10] MEDS: DOCUSATE SODIUM 100 MG CAPSULE PO SCH ×2 (08:10→16:14)
[2022-06-10] MEDS: NICOTINE PATCH (14MG) 14 MG PATCH.TD24 TD SCH (08:11)
[2022-06-10] MEDS: LIDOCAINE 5% (PATCH) 1 EA PATCH TP SCH ×2 (08:11→08:25)
[2022-06-10] MEDS: CLOTRIMAZOLE 1% 15 GM TUBE TP SCH ×2 (08:12→16:13)
[2022-06-10] MEDS: predniSONE 20 MG TABLET PO SCH (08:14)
--- NOTE | 2022-06-10 08:25 | NUR ---
PATIENT REFUSED LIDOCAINE PATCH, PATIENT SAID," IT DOESNT WORK".
[2022-06-10] MEDS ORDERED: prednisoLONE 5 MG/5 ML UDC PO ONE (09:00)
--- NOTE | 2022-06-10 16:14 | NUR ---
REFUSED TO TAKE COLACE
--- NOTE | 2022-06-10 19:11 | NUR ---
CLOSING NOTE; PATIENT IN BED ASLEEP BUT EASILY AROUSABLE, ORIENTEDX3, NO SIGNS OF IN DISTRESS, UNLABORED BREATHING ON ROOM AIR, BUT NASAL CANNULA AT BEDSIDE IF NEEDED. NO COMPLAINT OF PAIN AT THIS TIME. SAFETY MEASURES APPLIED, BED IN LOW POSITION LOCKED, SIDE RAILS UPX3, CALL LIGHT WITHIN REACH.
--- NOTE | 2022-06-10 20:45 | NUR ---
OPENING NOTES PATIENT IN BED ASLEEP BUT EASILY AROUSABLE, ORIENTEDX3, NO SIGNS OF IN DISTRESS, UNLABORED BREATHING ON ROOM AIR, BUT NASAL CANNULA AT BEDSIDE IF NEEDED. NO COMPLAINT OF PAIN AT THIS TIME. SAFETY MEASURES APPLIED, BED IN LOW POSITION LOCKED, SIDE RAILS UPX3, CALL LIGHT WITHIN REACH. HOB ELEVATED FOR ASPIRATION PRECAUTIONS WILL CONTINUE TO MONITOR.
[2022-06-10] MEDS: SENNOSIDES 8.6 MG TABLET PO SCH (21:26)
[2022-06-11 00:27] VITALS: BP 153/87
[2022-06-11] MEDS: IPRATROPIUM NEB FS 0.5 MG/2.5 ML AMPUL.NEB NEB SCH ×4 (03:30→14:18)
[2022-06-11] MEDS: ALBUTEROL HALF STRENGTH 1.25 MG/3 ML VIAL.NEB NEB SCH ×4 (03:30→14:18)
[2022-06-11 05:22] VITALS: BP 149/89
[2022-06-11] MEDS: ENOXAPARIN SODIUM 40 MG/0.4 ML DISP.SYRIN SQ SCH (05:41)
[2022-06-11 06:11] LABS: BASOPHILS # (AUTO) 0.1 K/uL (0.0-0.2); BASOPHILS % (AUTO) 0.6 % (0.0-2.0); EOSINOPHILS % (AUTO) 0.8 % (0.0-6.0); HEMATOCRIT 44 % (33-45); HEMOGLOBIN 14.4 g/dL (11.5-14.8); LYMPHOCYTES # (AUTO) 2.9 K/uL (0.8-4.8); LYMPHOCYTES % (AUTO) 16.4 % (20.0-44.0); MEAN CORPUSCULAR HGB CONC 33 g/dl (31.0-36.0); MEAN CORPUSCULAR VOLUME 88 fL (82-100); MONOCYTES # (AUTO) 1.6 K/uL (0.1-1.30); MONOCYTES % (AUTO) 8.8 % (2.0-12.0); NEUTROPHILS # (AUTO) 13.2 K/uL (1.8-8.9); NEUTROPHILS % (AUTO) 73.4 % (43.0-81.0); PLATELET COUNT (AUTO) 404 K/uL (150-450); RED BLOOD CELL COUNT(AUTO) 4.99 MIL/uL (4.0-5.2); WHITE BLOOD COUNT (AUTO) 17.9 K/uL (4.3-11.0)
[2022-06-11 06:28] LABS: CALCIUM, SERUM 9.7 mg/dL (8.5-10.1); CREATININE 0.6 mg/dL (0.6-1.3); POTASSIUM 3.6 mmol/L (3.5-5.1)
--- NOTE | 2022-06-11 06:53 | NUR ---
CLOSING NOTES PATIENT IN BED ASLEEP BUT EASILY AROUSABLE, ORIENTED X3-4 , NO SIGNS OF IN DISTRESS, UNLABORED BREATHING ON ROOM AIR, BUT NASAL CANNULA AT BEDSIDE IF NEEDED. NO COMPLAINT OF PAIN AT THIS TIME. SAFETY MEASURES APPLIED, BED IN LOW POSITION LOCKED, SIDE RAILS UPX3, CALL LIGHT WITHIN REACH. HOB ELEVATED FOR ASPIRATION PRECAUTIONS. WILL ENDORSE CARE TO DAY SHIFT NURSE.
[2022-06-11 08:00] VITALS: BP 134/89
--- NOTE | 2022-06-11 08:00 | NUR ---
telegraph repeater technician note Received pt in bed, sleeping but easily arousable AOx2, able to make needs known. On ra no sob noted at this time ,on tele monitor sr hr 94. No s/sx of respiratory distress noted. IV access in LFA #22G. IV is intact, patent, and flushing well. Safety precautions in place: bed in lowest, locked position, siderails upX2,call light within reach. All needs met at this time.will cont to monitor
[2022-06-11] MEDS: CLOTRIMAZOLE 1% 15 GM TUBE TP SCH ×2 (09:00→09:21)
[2022-06-11] MEDS: METFORMIN 500 MG TABLET PO SCH ×2 (09:00→09:19)
[2022-06-11] MEDS: LIDOCAINE 5% (PATCH) 1 EA PATCH TP SCH ×2 (09:00→09:18)
[2022-06-11] MEDS: predniSONE 20 MG TABLET PO SCH (09:18)
[2022-06-11] MEDS: NICOTINE PATCH (14MG) 14 MG PATCH.TD24 TD SCH (09:18)
[2022-06-11] MEDS: DULOXETINE HCL 30 MG CAPSULE.DR PO SCH (09:18)
[2022-06-11] MEDS: CYCLOBENZAPRINE 10 MG TABLET PO SCH ×2 (09:18→12:18)
[2022-06-11] MEDS: DOCUSATE SODIUM 100 MG CAPSULE PO SCH (09:19)
[2022-06-11] MEDS: GABAPENTIN 300 MG CAPSULE PO SCH ×2 (09:19→12:17)
[2022-06-11] MEDS: PANTOPRAZOLE 40 MG TABLET.DR PO SCH (09:19)
[2022-06-11] MEDS: DOXYCYCLINE HYCLATE (100 MG) 100 MG TABLET PO SCH (09:19)
[2022-06-11] MEDS: buPROPion SR 150 MG TABLET.ER PO SCH (09:19)
[2022-06-11] MEDS: FLUTICASONE PROPIONATE 16 GM BOTTLE NS SCH (09:21)
[2022-06-11] MEDS: BLOOD SUGAR DIAGNOSTIC 1 EACH STRIP IN SCH ×2 (09:21→12:19)
[2022-06-11] MEDS ORDERED: DOXY100T2 PO (11:51)
[2022-06-11] MEDS ORDERED: PRED20TA PO (11:51)
[2022-06-11 12:00] VITALS: BP 155/96
--- NOTE | 2022-06-11 12:30 | NUR ---
alexandria méndez note refused to have lunch Addendum: 06/11/22 at 1555 by MERCEDES ORELLANA RN carlton grady
[2022-06-11] MEDS: INSULIN REGULAR, HUMAN 100 UNIT/ML 3 ML VIAL SQ PRN (13:12)
--- NOTE | 2022-06-11 14:30 | NUR ---
telephone service adviser note rounds made, all needs attended ,able to eat lunch ,all needs refused to be clean ,offered x2
--- NOTE | 2022-06-11 15:00 | NUR ---
cable television program director note per dr bryson ok to discharge . per field nurse case manager will be discharge at 4 pm ,will f\u
--- NOTE | 2022-06-11 15:30 | NUR ---
registered nurse cardiac telemetry note called to nursing facility report given to meliza
--- NOTE | 2022-06-11 15:48 | NUR ---
television receiver analyzer note ambulance at bedside, report given, mid line rt upper arm removed, dry dressing applied ,no bleeding noted, patient strongly refused to take picture on body upon discharge , cousin at bedside aware that [facility] will [facility] address given to cousin
--- NOTE | 2022-06-11 15:55 | NUR ---
program director cable television note ambulance at bedside ,patient left to facility with stable condition, tele monitor removed, belonging given back to patient
[2022-06-11 16:00] VITALS: BP 144/75
== END 2022-06-11 16:13 | DRG 720 ==
LOC: ER 02:15 → TELE 10:20 → ICU 11:00 → TELE1 06-07 11:16
PROVIDERS: ADMIT Registered Nurse; ATTEND Internal Medicine
PROC: 05HB33Z Insertion of Infusion Device into Right Basilic Vein, Percutaneous Approach (ICD-10-PCS; principal; 2022-06-06)
DX: A41.9 Sepsis, unspecified organism (principal); J96.21 Acute and chronic respiratory failure with hypoxia; R65.21 Severe sepsis with septic shock; G93.41 Metabolic encephalopathy; J15.9 Unspecified bacterial pneumonia; J47.0 Bronchiectasis with acute lower respiratory infection; E87.1 Hypo-osmolality and hyponatremia; E66.2 Morbid (severe) obesity with alveolar hypoventilation; J47.1 Bronchiectasis with (acute) exacerbation; J81.1 Chronic pulmonary edema; E11.40 Type 2 diabetes mellitus with diabetic neuropathy, unspecified; E78.5 Hyperlipidemia, unspecified; J96.22 Acute and chronic respiratory failure with hypercapnia; Z20.822 Contact with and (suspected) exposure to COVID-19; Z91.018 Allergy to other foods; E04.2 Nontoxic multinodular goiter; Z68.44 Body mass index [BMI] 60.0-69.9, adult; Z53.20 Procedure and treatment not carried out because of patient's decision for unspecified reasons; Y95 Nosocomial condition; G89.4 Chronic pain syndrome; F40.240 Claustrophobia; I70.0 Atherosclerosis of aorta; J98.11 Atelectasis; L03.116 Cellulitis of left lower limb
CPT/HCPCS: 36410; 36415; 36600; 71045-TC; 76536-TC; 80048-TC; 80053-TC; 80061-TC; 80076-TC; 80202-TC; 81001; 82803-TC; 82962-TC; 83605-TC; 83735-TC; 83880; 84100-TC; 84443-TC; 84484-TC; 84703-TC; 85025-TC; 85378-TC; 85730-TC; 87040-TC; 87081-TC; 87086-TC; 93307-TC; 93970-TC; 94799-TC; 97530-TC; A4223; C9113; C9803; G0378; J0360; J0692; J1650; J1815; J1956; J2543; J2930; J3370; J7040; J7050; J7060; Q9967